=== PATIENT | female | born 1985 | race Caucasian/White ===

== ENCOUNTER 2022-04-14 13:17 | Emergency (ER) | payer OTHER, SELFPAY ==
[2022-04-14 13:29] VITALS: BP 118/87; PULSE 102; RESP 14; TEMP 37.5; O2SAT 97; BMI 25.8
--- NOTE | 2022-04-14 14:16 | ED_ITS ---
HPI - General Adult General Chief complaint: Sore Throat Stated complaint: Sore throat, weak Time Seen by Provider: 04/14/22 13:19 History of Present Illness HPI narrative: This 37-year-old female comes in from urgent care where there was a concern about 4+ ketones in the urine. The patient states that she does not feel well with the severe sore throat over the past several days. A strep test was done which was inconclusive. She states that she has not taken food because she has not felt well and has a severe sore throat. She does not have any trismus or muffled voice. She does not report any fevers. She does have type 1 diabetes and noted that her blood glucose has been elevated over these past 2 or 3 days in the 300 range. She has been taking more insulin but her glucose level as still remained elevated. She was sent here in part to rule out the possibility of diabetic ketoacidosis. She does not report any shortness of breath, polyuria, or polydipsia. Related Data Home Medications Medication Instructions Recorded Confirmed blood-glucose meter,continuous 01/02/22 04/14/22 (Dexcom G6 Tag Press Operator) blood-glucose sensor (Dexcom G6 #1 ea 01/02/22 04/14/22 Sensor device) blood-glucose transmitter (Dexcom #1 ea 01/02/22 04/14/22 G6 Transmitter device) glucagon 1 mg solution for 1 mg subcut Q20M PRN 01/02/22 04/14/22 injection insulin aspart U-100 100 unit/mL 60 unit continuous subcutaneous 01/02/22 04/14/22 subcutaneous solution (Novolog infusion QDAY U-100 Insulin aspart) insulin glargine-yfgn 100 unit/mL 100 unit subcut QPM 01/02/22 04/14/22 (3 mL) subcutaneous pen (Semglee (insulin glargine-yfgn) Pen) blood-glucose meter (Accu-Chek #1 ea 04/14/22 04/14/22 Guide Me Glucose Meter) enalapril maleate 10 mg tablet 10 mg PO BID 04/14/22 04/14/22 Previous Rx's Medication Instructions Recorded amoxicillin 875 mg-potassium 1 tab PO BID #20 tabs 04/14/22 clavulanate 125 mg tablet ketorolac 10 mg tablet 10 mg PO Q8H 5 days #15 tabs 04/14/22 Allergies Allergy/AdvReac Type Severity Reaction Status Date / Time No Known Drug Allergies Allergy Verified 04/14/22 12:19 Review of Systems Status of ROS: Reports: 10 or more systems reviewed and unremarkable except as noted in History and below Narrative: Constitutional: No fevers, no weight gain or loss. Eyes: No discharge. No vision changes. HENT: Severe sore throat. Cardiovascular: No chest pain, no palpitations. Respiratory: No shortness of breath, no wheezes, no cough. Gastrointestinal: No abdominal pain, no vomiting, no diarrhea. Genitourinary: No dysuria, no hematuria. Musculoskeletal: Normal range of motion. Skin: No rashes, no pruritis. Neurological: No dizziness, weakness, sensory change, speech change. Endo/Heme/Allergies: No bruising or bleeding. No polydipsia. Pysch: no suicidality, no anxiety, no insomnia. All other systems reviewed and are negative. [facility] Medical History (Updated 04/14/22 @ 14:22 by Obi Segura MD) Diabetes mellitus with diabetic nephropathy Essential (primary) hypertension Sore throat Type 1 diabetes mellitus with other diabetic ophthalmic complication Social History (Updated 01/22/22 @ 21:04 by Zak Eckert MD) Narrative: , three kids, nonsmoker, social ETOH Smoking Status: Never smoker How often do you have a drink containing alcohol: never AUDIT-C Alcohol total score: 0 Non-prescribed substance use: denies use service: No Exam Narrative: Exam Narrative: Constitutional: Well-developed, well-nourished, no acute distress. HEENT: Pharyngeal erythema with exudate. There is no unilateral tonsillar swelling. Neck: Normal range of motion. Nontender. Supple. Heart: Regular. No murmurs. Normal rate. Intact distal pulses. Lungs: Clear to auscultation. No chest discomfort. No wheezes, rhonchi, or rales. Abdomen: Normal bowel sounds. Nontender. No rebound tenderness. Genitalia: Deferred. Back: No midline tenderness. Normal range of motion. Extremities: Normal range of motion. No injury. Skin: Intact. No rash. Warm. No erythema or pallor. Neurologic: No altered sensation. No weakness. Alert and oriented. Psychiatric: No suicidality. No anxiety or depression. No insomnia. Nursing notes and vitals signs are reviewed. Const: Vital Signs, click to edit/add: Vital Signs - 24 hr 04/14/22 13:29 Temperature 99.5 F Pulse Rate [Pulse Oximeter] 102 H Respiratory Rate 14 Blood Pressure [Le ft Upper Arm] 118/87 Pulse Oximetry 97 Oxygen Delivery Me thod Room Air Course Vital Signs Vital signs: Initial Vital Signs Temperature 99.5 F 04/14/22 13:29 Temperature Source Temporal Artery Scan 04/14/22 13:29 Pulse Rate 102 H 04/14/22 13:29 Pulse Rhythm 04/14/22 13:29 Respiratory Rate 14 04/14/22 13:29 Blood Pressure 118/87 04/14/22 13:29 Blood Pressure Mean 97 04/14/22 13:29 Blood Pressure Position Sitting 04/14/22 13:29 Pulse Oximetry 97 04/14/22 13:29 Oxygen Delivery Method 04/14/22 13:29 Vital Signs Temperature 99.5 F 04/14/22 13:29 Pulse Rate 102 H 04/14/22 13:29 Respiratory Rate 14 04/14/22 13:29 Blood Pressure 118/87 04/14/22 13:29 Pulse Oximetry 97 04/14/22 13:29 Oxygen Delivery Method 04/14/22 13:29 Temperature 99.5 F 04/14/22 13:29 Pulse Rate 102 H 04/14/22 13:29 Respiratory Rate 14 04/14/22 13:29 Blood Pressure 118/87 04/14/22 13:29 Pulse Oximetry 97 04/14/22 13:29 Oxygen Delivery Method 04/14/22 13:29 Medical Decision Making MDM Narrative Medical decision making narrative: This patient arrives with normal vital signs. She does not have tachycardia or tachypnea. There is no sign of K[place]maul breathing. She does not report any polyuria or polydipsia. She has not had extremely high blood glucose. She is not showing typical signs of diabetic ketoacidosis despite having ketones in her urine. The ketones are present because she has not been taking food and her body is mobilizing fat supplies. I did offer lab an IV interventions which the patient declined in a process of shared decision making. I did describe signs and symptoms of DKA that would indicate a need for return and re-evaluation. She does have tonsillitis without any signs currently of peritonsillar abscess. She received a prescription for Augmentin and Toradol. At the time of discharge the patient appears safe for outpatient management. The treatment plan is reviewed along with written and verbal return precautions. Reasons to return and the importance of close followup were also reviewed. Discharge Plan Discharge Clinical Impression: Acute tonsillitis Patient Disposition: Home, Self-Care Condition: Unchanged Additional Instructions: Take medication as prescribed. Follow up with MD or return if worsening symptoms occur. Prescriptions: New ketorolac 10 mg tablet 10 mg PO Q8H 5 Days Qty: 15 0RF amoxicillin-pot clavulanate 875-125 mg tablet 1 tab PO BID Qty: 20 0RF No Action enalapril maleate 10 mg tablet 10 mg PO BID Label Comments: TAKE 1 TABLET BY MOUTH TWICE DAILY (DME) blood-glucose meter [Accu-Chek Guide Me Glucose Mtr] Misc See Rx Instructions .ROUTE .MEDSUPPLY Qty: 1 Label Comments: USE TO TEST BLOOD SUGAR DIRECTED. Rx Instructions: As directed insulin glargine-yfgn [Semglee(insulin glarg-yfgn)Pen] 100 unit/mL (3 mL) insulin pen 100 unit subcut QPM (DME) Dexcom G6 Tag Press Operator Misc See Rx Instructions .Route Rx Instructions: As directed glucagon 1 mg recon soln 1 mg subcut Q20M PRN Rx Instructions: until target blood sugar attained insulin aspart U-100 [Novolog U-100 Insulin aspart] 100 unit/mL solution 60 unit continuous subcutaneous infusion QDAY (DME) Dexcom G6 Transmitter Device See Rx Instructions .ROUTE .MEDSUPPLY Qty: 1 Label Comments: CHANGE EVERY 3 MONTHS DIRECTED Rx Instructions: As directed (DME) Dexcom G6 Sensor Device See Rx Instructions .ROUTE .MEDSUPPLY Qty: 1 Rx Instructions: As directed Follow Up/Referrals: Zak Eckert MD [Primary Care Provider] - Stand Alone Forms: [employer] Info Instructions
== END 2022-04-14 14:42 | disposition home or self-care (01) ==
PROVIDERS: Emergency Provider Emergency Medicine Emergency Medical Services; PCP Family Medicine
DX: J03.90 Acute tonsillitis, unspecified (principal)
CPT/HCPCS: 87086; 99283; 99284

== ENCOUNTER 2022-10-06 04:47 | Emergency (ER) | payer OTHER, SELFPAY ==
[2022-10-06 04:57] VITALS: BP 101/70; PULSE 105; RESP 18; TEMP 37.2; O2SAT 96; BMI 23.7
[2022-10-06] MEDS: 0.9 % SODIUM CHLORIDE 1000 ml 1,000 ML IV ×2 (05:26→06:03)
[2022-10-06] MEDS: ONDANSETRON 2 MG/ML inj 4 MG IVP (05:26)
[2022-10-06 05:29] LABS: Basophils Absolute Auto 0.04 K/uL (0.00-0.30); Basophils Percent Auto 0.5 % (0.0-3.0); Eosinophils Absolute Auto 0.03 K/uL (0.00-0.50); Eosinophils Percent Auto 0.4 % (0.0-7.0); Hematocrit 41.9 % (33.0-51.0); Hemoglobin* 13.6 gm/dL (12.0-16.0); Immature Granulocytes Abs Auto 0.01 K/uL (0.00-0.30); Immature Granulocytes Pct Auto 0.1 %; Lymphocytes Percent Auto 14.9 % (20-44); Mean Corpuscular HGB Conc 33 gm/dL (32-36); Mean Corpuscular Hemoglobin 27 pg (26-34); Mean Corpuscular Volume 83 fL (80-100); Monocytes Percent Auto 12.5 % (0.0-11.0); Neutrophils Absolute Auto 5.75 K/uL (1.7-7.0); Neutrophils Percent Auto 71.6 % (42.0-72.0); Platelet Count* 198 K/uL (140-440); RDW Coefficient of Variation % 12.6 % (11.5-15.5); Red Blood Count 5.04 m/uL (4.00-5.20); White Blood Count* 8.03 K/uL (4.50-11.00)
[2022-10-06 05:34] LABS: Slide Review Reflex No
[2022-10-06 05:39] VITALS: PULSE 86; RESP 16; O2SAT 98
[2022-10-06 05:43] LABS: Chloride* 104 mmol/L (96-114); Potassium* 3.7 mmol/L (3.6-5.1); Sodium* 134 mmol/L (135-149)
[2022-10-06 05:45] LABS: PCR FLU A Negative PCR FLU A (Negative); PCR FLU B Negative PCR FLU B (Negative); SARS PCR* Negative SARS-CoV-2 (Negative)
[2022-10-06 05:45] LABS: Est. Creatinine Clearance* 87.76; Estimated Glomerular Filt Rate 75 ml/min
[2022-10-06 05:46] LABS: Anion Gap 5 mEq/L (7-15); Blood Urea Nitrogen* 17 mg/dL (5-24); Calcium* 8.8 mg/dL (8.4-10.6); Carbon Dioxide* 25 mmol/L (20-32); Glucose* 102 mg/dL (60-115)
--- NOTE | 2022-10-06 06:34 | ED.GENADULT ---
HPI - General Adult General Date Seen: 10/06/22 Chief complaint: Unspecified Complaint, Adult Stated complaint: can't eat,nausea,sore throat,fever Time Seen by Provider: 10/06/22 05:05 Source: patient Mode of arrival: ambulatory Limitations: no limitations History of Present Illness HPI narrative: Patient is a 37-year-old female who was recently on a business trip when she suddenly felt ill. She had headaches, body aches, nausea and vomiting. She has not kept down any food for the past three days. She does keep down water but then will have dry heaves. Two over children had strep about 10 days ago. She did take two doses of one of her children's amoxicillin two days ago. She continues to have a sore throat but it is not severe. No urinary symptoms. She feels weak. She is a type 1 diabetic and her sugars have remained normal. Her recent A1c was 7% corresponding to an average blood sugar of 150. Related Data Home Medications Medication Instructions Recorded Confirmed blood-glucose meter,continuous 01/02/22 09/28/22 (Dexcom G6 Endo Tech) blood-glucose sensor (Dexcom G6 #1 ea 01/02/22 09/28/22 Sensor device) blood-glucose transmitter (Dexcom #1 ea 01/02/22 04/14/22 G6 Transmitter device) glucagon 1 mg solution for 1 mg subcut Q20M PRN 01/02/22 09/28/22 injection insulin glargine-yfgn 100 unit/mL 100 unit subcut QPM 01/02/22 09/28/22 (3 mL) subcutaneous pen (Semglee (insulin glargine-yfgn) Pen) blood-glucose meter (Accu-Chek #1 ea 04/14/22 09/28/22 Guide [place] Glucose Meter) enalapril maleate 10 mg tablet 10 mg PO BID 04/14/22 09/28/22 insulin pump cart,automated,BT #5 ea 09/28/22 09/28/22 (Omnipod 5 G6 Pods (Gen 5) subcutaneous cartridge) Previous Rx's Medication Instructions Recorded insulin aspart U-100 100 unit/mL See Rx Instructions continuous 04/27/22 subcutaneous solution (Novolog subcutaneous infusion QDAY 90 days U-100 Insulin aspart) #80 mL semaglutide 0.25 mg or 0.5 mg (2 0.25 mg (0.368 mL) subcut QWEEK #3 09/29/22 mg/3 mL) subcutaneous pen injector mL (Ozempic) amoxicillin 875 mg tablet 875 mg PO BID #14 tabs 10/06/22 ondansetron 8 mg disintegrating 8 mg PO TID PRN nausea and 10/06/22 tablet vomiting #20 tabs Allergies Allergy/AdvReac Type Severity Reaction Status Date / Time No Known Drug Allergies Allergy Verified 09/28/22 09:12 Review of Systems Narrative: Review of systems is outlined above otherwise noted to be negative. [facility] Medical History (Updated 10/06/22 @ 06:04 by Zak Eckert MD) Vitamin D deficiency (09/20/18) ?E55.9 - Vitamin D deficiency, unspecified (ICD-10) Right retinal detachment (12/03/18) ?H33.21 - Serous retinal detachment, right eye (ICD-10) Pre-eclampsia ?O14.90 - Unspecified pre-eclampsia, unspecified trimester (ICD-10) Essential (primary) hypertension ?I10 - Essential (primary) hypertension (ICD-10) Diabetes mellitus with diabetic nephropathy ?E11.21 - Type 2 diabetes mellitus with diabetic nephropathy (ICD-10) Type 1 diabetes mellitus with other diabetic ophthalmic complication ?E10.39 - Type 1 diabetes mellitus with other diabetic ophthalmic complication (ICD-10) Surgical History (Updated 09/27/22 @ 11:58 by Johana Silva ~ PSR) Delivery by section History of tonsillectomy and adenoidectomy (03/18/98) ?Z90.89 - Acquired absence of other organs (ICD-10) History of left cataract extraction (06/25/21) ?Z98.42 - Cataract extraction status, left eye (ICD-10) History of left breast biopsy (02/04/20) ?Z98.890 - Other specified postprocedural states (ICD-10) Social History (Updated 01/22/22 @ 21:04 by Zak Eckert MD) Narrative: , three kids, nonsmoker, social ETOH Smoking Status: Never smoker How often do you have a drink containing alcohol: never AUDIT-C Alcohol total score: 0 Non-prescribed substance use: denies use Little interest or pleasure in doing things: not at all Feeling down, depressed, or hopeless: not at all service: No Exam Narrative: Exam Narrative: Vitals noted. HEENT: Conjunctiva clear. Tympanic membranes are pearly white bilaterally. Posterior pharynx is clear without erythema or exudate. Mouth is extremely dry. Neck is supple without adenopathy. Lungs: Clear to auscultation in all [place]. No wheezes, rales, rhonchi. Heart: Regular rate and rhythm without murmur. Abdomen: Soft and nontender. No guarding, rigidity, rebound. Bowel sounds are normal. No palpable masses. Extremities: No cyanosis or edema. Good distal pulses. Skin: No abnormalities noted of the exposed skin. Neurologic: Awake, alert, fully oriented. Neurologic exam is nonfocal. Const: Vital Signs, click to edit/add: Vital Signs - 24 hr 10/06/22 04:57 10/06/22 05:39 Temperature 98.9 F Pulse Rate [Left P ulse Oximeter] 105 H 86 Respiratory Rate 18 16 Blood Pressure [Ri ght Upper Arm] 101/70 Pulse Oximetry 96 98 Oxygen Delivery Me thod Room Air Room Air Course Course Hospital Course: Patient was seen and examined. Labs are ordered. IV is established and she received 2 L of normal saline and Zofran 4 mg IV. Reevaluation(s) Reevaluation #1: Swab for COVID and influenza is negative. CBC and BMP are unremarkable. She feels slightly better after the fluids. Vital Signs Vital signs: Initial Vital Signs Temperature 98.9 F 10/06/22 04:57 Temperature Source Temporal Artery Scan 10/06/22 04:57 Pulse Rate 105 H 10/06/22 04:57 Respiratory Rate 18 10/06/22 04:57 Blood Pressure 101/70 10/06/22 04:57 Blood Pressure Mean 80 10/06/22 04:57 Blood Pressure Position Sitting 10/06/22 04:57 Pulse Oximetry 96 10/06/22 04:57 Oxygen Delivery Method Room Air 10/06/22 04:57 Vital Signs Temperature 98.9 F 10/06/22 04:57 Pulse Rate 105 H 10/06/22 04:57 Respiratory Rate 18 10/06/22 04:57 Blood Pressure 101/70 10/06/22 04:57 Pulse Oximetry 96 10/06/22 04:57 Oxygen Delivery Method Room Air 10/06/22 04:57 Temperature 98.9 F 10/06/22 04:57 Pulse Rate 86 10/06/22 05:39 Respiratory Rate 16 10/06/22 05:39 Blood Pressure 101/70 10/06/22 04:57 Pulse Oximetry 98 10/06/22 05:39 Oxygen Delivery Method Room Air 10/06/22 05:39 Medical Decision Making Lab Data Labs: Lab Results 10/06/22 10/06/22 Range/Units 04:55 05:22 WBC 8.03 (4.50-11.00) K/uL RBC 5.04 (4.00-5.20) m/uL Hgb 13.6 (12.0-16.0) gm/dL Hct 41.9 (33.0-51.0) % MCV 83 (80-100) fL MCH 27 (26-34) pg MCHC 33 (32-36) gm/dL RDW Coeff of Ilir 12.6 (11.5-15.5) % Plt Count 198 (140-440) K/uL Neut % (Auto) 71.6 (42.0-72.0) % Lymph % (Auto) 14.9 L (20-44) % [place] % (Auto) 12.5 H (0.0-11.0) % Eos % (Auto) 0.4 (0.0-7.0) % Baso % (Auto) 0.5 (0.0-3.0) % Neut # (Auto) 5.75 (1.7-7.0) K/uL Lymph # (Auto) 1.20 (0.90-2.90) K/uL [place] # (Auto) 1.00 H (0.00-0.90) K/UL Eos # (Auto) 0.03 (0.00-0.50) K/uL Baso # (Auto) 0.04 (0.00-0.30) K/uL Abs Immat Gran (auto) 0.01 (0.00-0.30) K/uL Imm/Tot Granulo (auto) 0.1 % Sodium 134 L (135-149) mmol/L Potassium 3.7 (3.6-5.1) mmol/L Chloride 104 (96-114) mmol/L Carbon Dioxide 25 (20-32) mmol/L Anion Gap 5 L (7-15) mEq/L BUN 17 (5-24) mg/dL Creatinine 1.0 (0.5-1.5) mg/dL Estimated Creat Clear 87.76 Estimated GFR 75 ml/min Glucose 102 (60-115) mg/dL Calcium 8.8 (8.4-10.6) mg/dL SARS-CoV-2 (PCR) Negative SARS-CoV-2 (Negative) Influenza Type A (PCR) Negative PCR FLU A (Negative) Influenza Type B (PCR) Negative PCR FLU B (Negative) Discharge Plan Discharge Clinical Impression: Gastroenteritis Patient Disposition: Home, Self-Care Condition: Improved Additional Instructions: Rest, Tylenol 1000 mg 3 times daily for pain and fever, push fluids. Zofran 8 mg 3 times daily as needed. Amoxicillin 875 mg b.i.d. x7 days. Follow-up if worsening or not improving. Prescriptions: New amoxicillin 875 mg tablet 875 mg PO BID Qty: 14 0RF ondansetron 8 mg tablet,disintegrating 8 mg PO TID PRN (Reason: nausea and vomiting) Qty: 20 0RF No Action enalapril maleate 10 mg tablet 10 mg PO BID Patient Comments: TAKE 1 TABLET BY MOUTH TWICE DAILY (DME) blood-glucose meter [Accu-Chek Guide Me Glucose Mtr] Misc See Rx Instructions .ROUTE .MEDSUPPLY Qty: 1 Patient Comments: USE TO TEST BLOOD SUGAR DIRECTED. Rx Instructions: As directed (DME) Omnipod 5 G6 Pods (Gen 5) Cartridge See Rx Instructions subcut .MEDSUPPLY Qty: 5 Rx Instructions: As directed Ozempic 0.25 mg or 0.5 mg (2 mg/3 mL) pen injector 0.25 mg subcut QWEEK Qty: 3 2RF Rx Instructions: 0.25 mg for 4 weeks then 0.5 mg Qweek x 4 insulin glargine-yfgn [Semglee(insulin glarg-yfgn)Pen] 100 unit/mL (3 mL) insulin pen 100 unit subcut QPM (DME) Dexcom G6 Endo Tech Misc See Rx Instructions .Route Rx Instructions: As directed glucagon 1 mg recon soln 1 mg subcut Q20M PRN Rx Instructions: until target blood sugar attained (DME) Dexcom G6 Transmitter Device See Rx Instructions .ROUTE .MEDSUPPLY Qty: 1 Patient Comments: CHANGE EVERY 3 MONTHS DIRECTED Rx Instructions: As directed (DME) Dexcom G6 Sensor Device See Rx Instructions .ROUTE .MEDSUPPLY Qty: 1 Rx Instructions: As directed insulin aspart U-100 [Novolog U-100 Insulin aspart] 100 unit/mL solution See Rx Instructions continuous subcutaneous infusion QDAY 90 Days Qty: 80 3RF Rx Instructions: Uses 90 units daily per insulin pump Follow Up/Referrals: Zak Eckert MD [Primary Care Provider] - Stand Alone Forms: My[employer] Info Instructions
[2022-10-06 06:44] VITALS: BP 111/78; PULSE 81; RESP 16; TEMP 37.2
== END 2022-10-06 06:45 | disposition home or self-care (01) ==
PROVIDERS: Emergency Provider Family Medicine; PCP Family Medicine
DX: K52.9 Noninfective gastroenteritis and colitis, unspecified (principal)
CPT/HCPCS: 36415; 80048; 85025; 87631; 96374; 99282; 99283; 99284; J2405; J7030

== ENCOUNTER 2023-06-25 13:34 | Outpatient (CLI) | payer OTHER, SELFPAY | END 2023-06-25 13:35 | disposition home or self-care (01) | PROVIDERS: PCP Family Medicine; Visit Provider Family Medicine | DX: E10.9 Type 1 diabetes mellitus without complications (principal); R53.83 Other fatigue; E55.9 Vitamin D deficiency, unspecified; I10 Essential (primary) hypertension | CPT/HCPCS: 80048; 84443; 84460; 85025 ==

== ENCOUNTER 2023-11-12 14:42 | Outpatient (CLI) | payer OTHER, SELFPAY ==
[2023-11-12 22:32] LABS: PCR FLU A Negative PCR FLU A (Negative); PCR FLU B Negative PCR FLU B (Negative); SARS PCR* Negative SARS-CoV-2 (Negative)
== END 2023-11-12 14:43 | disposition home or self-care (01) ==
PROVIDERS: PCP Family Medicine; Visit Provider Family Medicine
DX: R50.9 Fever, unspecified (principal)
CPT/HCPCS: 87631